=== PATIENT | male | born 1935 | race Caucasian/White ===

== ENCOUNTER 2017-06-05 10:16 | Inpatient (IN) | payer MEDICARE ==
[~2017-06-05] VITALS: Ht 170.2 cm; Wt 69.6 kg
[2017-06-05] VITALS (8 sets, daily range): BP systolic 92–119; BP diastolic 54–97
[2017-06-05] MEDS ORDERED: PRAVASTATIN10 MG PO (11:04)
[2017-06-05] MEDS ORDERED: ALTACE2.5 MG PO (11:04)
[2017-06-05] MEDS ORDERED: XALATAN0.005 % OU (11:05)
[2017-06-05] MEDS ORDERED: DORZOLAMIDE2 % OU (11:06)
[2017-06-05] MEDS ORDERED: ASPIRIN 8181 MG PO (11:07)
[2017-06-05 11:37] LABS: HEMOGLOBIN 15.6 g/dl (14.0-18.0); IMMATURE GRANULOCYTES 0.3 % (0.0-1.0); MEAN CELL VOLUME 99.4 fL CALC (80.0-100.0); MEAN CORPUSCULAR HGB CONC 33.2 g/L CALC (32.0-36.0); NEUT# 6.43 thou/uL (1.82-7.42); RED BLOOD COUNT 4.73 mill/uL (4.70-6.10); RED CELL DISTRI WIDTH 12.7 % (11.5-15.5)
[2017-06-05 11:45] LABS: ALBUMIN 4.7 g/dL (3.2-5.0); ANION GAP 22 (6-22 (CALC)); BILIRUBIN, TOTAL 0.8 mg/dL (0.0-1.4); BUN 18 mg/dL (8-23); BUN/CREATININE RATIO 22 (12-20 (CALC)); CARBON DIOXIDE 23 mmol/l (22-30); CHLORIDE 103 mmol/l (95-108); CREATININE 0.8 mg/dL (0.7-1.3); GFR > 60 ML/MIN (>=60 (CALC)); GFR FOR AFR.AMER. > 60 ML/MIN (>=60 (CALC)); POTASSIUM 4.3 mmol/l (3.5-5.1); SGOT/AST 26 u/l (19-48); SGPT/ALT 39 u/l (11-66); SODIUM 144 mmol/l (137-146)
[2017-06-05 11:48] LABS: ALKALINE PHOSPHATASE 89 u/l (38-126); TOTAL PROTEIN 8.2 g/dL (6.3-8.2)
[2017-06-05 11:57] LABS: MYOGLOBIN 44 ng/mL (0 - 121)
[2017-06-05 12:05] LABS: ACT PARTIAL THROMBO TIME 28.7 SECONDS (20.0-32.5); PROTHROMBIN TIME 11.4 SECONDS (9.0-12.5)
[2017-06-06] VITALS (8 sets, daily range): BP systolic 82–110; BP diastolic 47–75
[2017-06-06] MEDS ORDERED: ELIQUIS5 MG PO (09:50)
[2017-06-06] MEDS ORDERED: LOPRESSOR 550 MG/TAB PO (09:50)
== END 2017-06-06 10:50 | disposition home or self-care (01) | DRG 310 ==
LOC: ED 10:16 → ED-I 12:23 → ED 13:01 → ICU 13:02
PROVIDERS: Emergency Medicine; ADMIT Internal Medicine; ATTEND Internal Medicine
DX: I48.91 Unspecified atrial fibrillation (principal); I45.2 Bifascicular block; E78.5 Hyperlipidemia, unspecified; I10 Essential (primary) hypertension; I25.10 Atherosclerotic heart disease of native coronary artery without angina pectoris; N40.0 Benign prostatic hyperplasia without lower urinary tract symptoms; M19.042 Primary osteoarthritis, left hand; M19.041 Primary osteoarthritis, right hand; Z95.1 Presence of aortocoronary bypass graft
CPT/HCPCS: J1650

== ENCOUNTER → 2018-04-22 | Outpatient (REF) | payer MEDICARE ==
[~2018-04-22] MED LIST: ALTACE2.5 MG PO; ASPIRIN 8181 MG PO; DORZOLAMIDE2 % OU; ELIQUIS5 MG PO; LOPRESSOR 550 MG/TAB PO; PRAVASTATIN10 MG PO; XALATAN0.005 % OU
[2018-04-22 10:35] LABS: ANION GAP 14 (6-22 (CALC)); BUN 19 mg/dL (8-23); BUN/CREATININE RATIO 23 (12-20 (CALC)); CARBON DIOXIDE 28 mmol/l (22-30); CHLORIDE 103 mmol/l (95-108); CREATININE 0.8 mg/dL (0.7-1.3); GFR > 60 ML/MIN (>=60 (CALC)); GFR FOR AFR.AMER. > 60 ML/MIN (>=60 (CALC)); POTASSIUM 4.2 mmol/l (3.5-5.1); SODIUM 141 mmol/l (137-146)
== END | disposition home or self-care (01) ==
LOC: LAB 08:47
PROVIDERS: ATTEND Internal Medicine
DX: I50.33 Acute on chronic diastolic (congestive) heart failure (principal)

== ENCOUNTER → 2021-06-02 | Day surgery (SDC) | payer MEDICARE ==
[~2021-06-02] VITALS: Ht 170.2 cm; Wt 61.2 kg
[~2021-06-02] MED LIST changes: +ACETAMIN500 M2 PO; +DIGOXIN0.125 MG PO; +FLAXSEED OIL1000 MG PO; +FLONASE AL50 MCG/ACT; +FUROSEMIDE20 MG PO; +LORATADINE10 M3 PO; +MAGNESIUM250 M1 PO; +MELATONIN3 MG PO; +NITROGLYCERIN0.4 MG; +TRAMADOL HCL50 MG PO; +VITAMIN D31000 UNI1 PO; +WARFARIN SODIU2.5 M1 PO; +ZINC50 M1 PO
[2021-06-02 14:04] VITALS: BP 109/68
== END | disposition home or self-care (01) ==
LOC: ORM 07:47
PROVIDERS: ATTEND Surgery
PROC: 0H88XZZ Division of Buttock Skin, External Approach (ICD-10-PCS; principal; 2021-06-02)
PROC: 06BY3ZC Excision of Hemorrhoidal Plexus, Percutaneous Approach (ICD-10-PCS; 2021-06-02)
DX: K60.3 Anal fistula (principal); K64.4 Residual hemorrhoidal skin tags; I48.91 Unspecified atrial fibrillation; I10 Essential (primary) hypertension; Z79.01 Long term (current) use of anticoagulants
CPT/HCPCS: C9290; J3490